=== PATIENT | female | born 1950 | race Caucasian/White ===

== ENCOUNTER 2025-05-20 11:07 | Inpatient (IN) | payer OTHER, BC ==
[2025-05-20] MEDS ORDERED: NA CHLORIDE 0.9% 1,000 ML ONE (11:35)
[2025-05-20] MEDS ORDERED: ONDANSETRON 4 MG/2 ML VIAL ONE (11:35)
[2025-05-20 11:53] LABS: Absolute Lymphocytes (CBC) 2.0 K/uL (0.7-4.9); Hematocrit 55.2 % (36.0-45.0); Hemoglobin 17.7 g/dL (12.0-15.0); MCH 27.2 pg (27.0-35.0); MCHC 32.1 g/dL (32.0-36.0); MCV 84.7 fL (80-100); MPV 9.8 fL (7.6-11.3); Nucleated RBC Absolute Count 0.0 (0-0); Nucleated Red Blood Cells % 0.4 % (0-0); RBC Red Blood Cell Count 6.51 M/uL (3.86-4.86); White Blood Count 9.10 thou/uL (4.3-10.9)
[2025-05-20 12:13] LABS: ALT/SGPT 17.0 U/L (13-56); AST/SGOT 18.0 U/L (15-37); Albumin 3.5 g/dL (3.4-5.0); Albumin/Globulin Ratio 0.7 (1.1-1.8); Alkaline Phosphatase 135.0 U/L (45-117); Anion Gap 10.5 mEq/L (5.0-15.0); BUN Blood Urea Nitrogen 20.0 mg/dL (7-18); Globulin 5.1 g/dL (2.3-3.5); Glucose Level 188.0 mg/dL (74-106); Lipase 154.0 U/L (13-75); Potassium 3.5 mEq/L (3.5-5.1)
--- NOTE | 2025-05-20 12:43 | RAD REPORT ---
EXAMINATION: Abdomen Pelvis W Contrast CLINICAL INDICATION: Female, 75 years old.ABD PAIN TECHNIQUE: CT abdomen and pelvis was performed, after the administration of IV contrast, as per [facility] protocol. Axial, sagittal and coronal reconstructions were obtained. One or more of the following dose reduction techniques were used: Automated exposure control, adjustment of the mA and/o r kV according to patient size, and/or iterative reconstruction. Unless otherwise specified, incidental findings do not require dedicated imaging follow-up. [id number]. COMPARISON: No prior exams FINDINGS: LOWER CHEST: No acute process identified.No significant pericardial effusion. Mild circumferential th ickening of the distal esophagus which could reflect esophagitis. UPPER GI: No significant abnormality. LIVER: No significant focal abnormality. GALLBLADDER/BILE DUCTS: Cholecystectomy.? PANCREAS: Relative atrophy of the body and tail. No ductal dilatation or mass. SPLEEN: Unremarkable. ADRENALS: No adrenal masses. KIDNEYS AND URETERS: No hydronephrosis.Low density and/or too small to characterize renal lesions whi ch are statistically benign.No renal calculi.No ureteral calculi. ABDOMINAL AORTA AND OTHER VESSELS: Severe atherosclerotic changes. No aortic aneurysm. PERITONEUM: No abnormal free fluid. No free air. LYMPH NODES: No pathologic lymphadenopathy. ABDOMINAL WALL: Unremarkable SMALL BOWEL/COLON: Wall thickening at the ascending and transverse colon. Mild diverticulosis without diverticulitis. URINARY BLADDER: Underdistended but grossly unremarkable. REPRODUCTIVE ORGANS: No pathologic process. MUSCULOSKELETAL: No acute or suspicious osseous abnormality. ADDITIONAL FINDINGS: None. IMPRESSION: Wall thickening at the ascending and transverse colon could reflect a bronchitis. No bowel obstructio n. No other acute findings identified. Incidental findings as noted above.
[2025-05-20] MEDS ORDERED: METRONIDAZOLE 500mg IVPB 500 MG/100 ML BAG IV ONE (13:38)
[2025-05-20] MEDS ORDERED: CIPROFLOXACIN 400mg IV 400 MG/200 ML BAG IV ONE (13:38)
--- NOTE | 2025-05-20 13:38 | ER ---
Nurse's Notes [facility] Name: Rosalia Mccartney Age: 75 yrs Sex: Female : 1950 Arrival Date: 05/20/2025 Time: 11:07 Bed 15 Private MD: Diagnosis: Dehydration;Colitis Presentation: 05/20 11:22 Chief complaint: Patient states: N/V since Tuesday. Coronavirus screen: Client denies ss travel out of the [place] in the last 14 days. Ebola Screen: Patient denies exposure to infectious person. Patient denies travel to an Ebola-affected area in the 21 days before illness onset. Initial Sepsis Screen: Does the patient meet any 2 criteria? No. Patient's initial sepsis screen is negative. Does the patient have a suspected source of infection? No. Patient's initial sepsis screen is negative. Risk Assessment: Do you want to hurt yourself or someone else? Patient reports no desire to harm self or others. Onset of symptoms was May 17, 2025. 11:22 Method Of Arrival: Ambulatory ss 11:22 Acuity: LUIS MIGUEL 3 ss Historical: - Allergies: 11:24 No Known Allergies; ss - Home Meds: 14:18 omeprazole 20 mg Oral tablet, delayed release (enteric coated) 1 tab daily [Active]; af3 atorvastatin 40 mg oral tablet 1 tab daily [Active]; carvedilol 3.125 mg oral tablet 1 tab 2 times per day [Active]; levothyroxine 200 mcg tablet 1 tab daily [Active]; lisinopril 40 mg Oral tablet 1 tab daily [Active]; glipizide 5 mg Oral tablet 1 tab 2 times per day [Active]; Jardiance 25 mg oral tablet 1 tab daily [Active]; amlodipine 10 mg tablet 1 tab daily [Active]; - PMHx: 11:24 COPD; ss - Immunization history:: Adult Immunizations unknown. - Infectious Disease History:: Denies. - Social history:: Smoking status: Patient reports the use of cigarette tobacco products, smokes one pack cigarettes per day. Screenin:30 [facility] ED Fall Risk Assessment (Adult) History of falling in the last 3 months, af3 including since admission No falls in past 3 months (0 pts) Confusion or Disorientation No (0 pts) Intoxicated or Sedated No (0 pts) Impaired Gait No (0 pts) Mobility Assist Device Used No (0 pt) Altered Elimination No (0 pt) Score/Fall Risk Level 0 - 2 = Low Risk Oriented to surroundings, Maintained a safe environment, Educated pt \T\ family on fall prevention, incl call for assistance when getting out of bed. Abuse screen: Denies threats or abuse. Denies injuries from another. Nutritional screening: No deficits noted. Tuberculosis screening: No symptoms or risk factors identified. Assessment: 11:30 General: Appears in no apparent distress. comfortable, well groomed, well developed, af3 Behavior is calm, cooperative, appropriate for age. Pain: Denies pain. Neuro: Level of Consciousness is awake, alert, obeys commands, Oriented to person, place, time, situation, Appropriate for age. Cardiovascular: Patient's skin is warm and dry. Respiratory: Airway is patent Respiratory effort is even, unlabored, Respiratory pattern is regular, symmetrical. GI: Reports nausea, vomiting. 12:34 Reassessment: Patient appears in no apparent distress at this time. No changes from cm10 previously documented assessment. Patient and/or family updated on plan of care and expected duration. Pain level reassessed. Patient is alert, oriented x 3, equal unlabored respirations, skin warm/dry/pink. 13:46 Reassessment: Patient appears in no apparent distress at this time. No changes from af3 previously documented assessment. Patient and/or family updated on plan of care and expected duration. Pain level reassessed. Patient is alert, oriented x 3, equal unlabored respirations, skin warm/dry/pink. 14:53 Reassessment: Patient appears in no apparent distress at this time. No changes from af3 previously documented assessment. Patient and/or family updated on plan of care and expected duration. Pain level reassessed. Patient is alert, oriented x 3, equal unlabored respirations, skin warm/dry/pink. Patient states symptoms have improved. 15:32 Reassessment: Patient appears in no apparent distress at this time. No changes from af3 previously documented assessment. Patient and/or family updated on plan of care and expected duration. Pain level reassessed. Patient is alert, oriented x 3, equal unlabored respirations, skin warm/dry/pink. 16:30 Reassessment: Patient appears in no apparent distress at this time. No changes from af3 previously documented assessment. Patient and/or family updated on plan of care and expected duration. Pain level reassessed. Patient is alert, oriented x 3, equal unlabored respirations, skin warm/dry/pink. Vital Signs: 11:22 BP 164 / 95; Pulse 90; Resp 18; Temp 98(O); Pulse Ox 89% ; Weight 54.43 kg; Height 5 ss ft. 0 in. ; Pain 0/10; 11:30 BP 183 / 82; Pulse 76; Resp 18; Pulse Ox 100% on 2 lpm NC; Weight 54.43 kg; Height 5 af3 ft. 0 in. ; 12:34 BP 200 / 88; Pulse 79; Resp 18; Pulse Ox 100% on 2 lpm NC; cm10 12:49 BP 184 / 79; Pulse 86; Resp 18; Pulse Ox 94% on 2 lpm NC; af3 13:46 BP 167 / 100; Pulse 85; Resp 18; Pulse Ox 96% on 2 lpm NC; af3 14:05 BP 177 / 87; Pulse 81; Resp 18; Pulse Ox 97% on 2 lpm NC; af3 14:52 BP 204 / 86; Pulse 72; Resp 18; Pulse Ox 98% on 2 lpm NC; af3 15:31 BP 167 / 95; Pulse 85; Resp 18; Pulse Ox 94% on 2 lpm NC; af3 16:11 BP 188 / 88; Pulse 86; Resp 18; Pulse Ox 98% on R/A; af3 16:29 BP 184 / 83; Pulse 84; Resp 18; Pulse Ox 94% on 2 lpm NC; af3 11:30 Body Mass Index 23.44 (54.43 kg, 152.4 cm) af3 11:22 Pain Scale: Adult ss ED Course: 11:12 Patient arrived in ED. al6 11:13 [facility] Britt [facility]-C [facility]. kb 11:13 Royal Lombardo MD is Attending Physician. kb 11:24 Triage completed. ss 11:24 Arm band placed on right wrist. ss 11:30 Patient has correct armband on for positive identification. Bed in low position. Call af3 light in reach. Provided Education on: meds, call light use . 11:30 No provider procedures requiring assistance completed. af3 11:33 Magali Powers RN is Primary Nurse. af3 11:51 Inserted saline lock: 20 gauge in right antecubital area, using aseptic technique. pm7 Blood collected. Flushed with 10 mL NS. 12:29 CT Abd/Pelvis - IV Contrast Only In Process Unspecified. EDMS 13:37 Tavo Escobar is Hospitalizing Provider. kb 17:10 Patient admitted, IV remains in place. af3 Administered Medications: 11:52 Drug: Ondansetron IVP 4 mg IVP once; over 2 minutes Route: IVP; Site: right antecubital;af3 12:30 Follow up: Response: No adverse reaction; Nausea is decreased af3 11:52 Drug: NS 0.9% IV 1000 ml IV at 1 bolus Per protocol; to be given as a bolus over 60 af3 minutes Route: IV; Rate: 1 bolus; Site: right antecubital; 12:30 Follow up: Response: No adverse reaction; IV Status: Completed infusion; IV Intake: af3 1000ml 13:35 CANCELLED (Other Intervention Used): [id number] mg PO once kb 13:35 CANCELLED (Other Intervention Used): [id number] mg PO once kb 13:46 Drug: Ciprofloxacin IVPB 400 mg 200 ml IVPB once over 60 mins Volume: 200 ml; Route: af3 IVPB; Infused Over: 60 mins; Site: right antecubital; 14:52 Follow up: Response: No adverse reaction; IV Status: Completed infusion; IV Intake: af3 200ml 14:52 Drug: metroNIDAZOLE IVPB 500 mg 100 ml IVPB at 200 ml/hr once over 30 mins Volume: 100 af3 ml; Route: IVPB; Rate: 200 ml/hr; Infused Over: 30 mins; Site: right antecubital; 16:11 Follow up: BP 188 / 88; Pulse 86 bpm; Resp 18 bpm; Pulse Ox 98% RA af3 16:12 Follow up: Response: No adverse reaction; IV Status: Completed infusion; IV Intake: af3 100ml Medication: 11:30 VIS not applicable for this client. af3 Intake: 12:30 IV: 1000ml; Total: 1000ml. af3 14:52 IV: 200ml; Total: 1200ml. af3 16:12 IV: 100ml; Total: 1300ml. af3 Outcome: 13:37 Decision to Hospitalize by Provider. kb 17:09 Admitted to Med/surg accompanied by nurse, via wheelchair, with oxygen, with chart, af3 Other RM 230 17:09 Condition: stable 17:09 Discharge instructions given to patient, Instructed on the need for admit, Demonstrated understanding of instructions, 17:10 Patient left the ED. af3 Signatures: Dispatcher [employer] EDMS Iris Britt, SOUND RECORDIST-C SOUND RECORDIST-CkDemi Craig RN RN ss Yesica Wilson RN RN cm10 Magali Powers RN RN af3 Rola Hartman6 Trini Holbrook pm7 Corrections: (The following items were deleted from the chart) 14:10 14:05 BP 171 / 151; Pulse 81bpm; Resp 18bpm; Pulse Ox 97% 2 lpm Nasal Cannula; af3 af3
--- NOTE | 2025-05-20 13:38 | EDPHYS ---
Physician Documentation [facility] Name: Rosalia Mccartney Age: 75 yrs Sex: Female : 1950 Arrival Date: 05/20/2025 Time: 11:07 Bed 15 Private MD: ED Physician Royal Lombardo HPI: 05/20 11:27 This 75 yrs old Female presents to ER via Ambulatory with complaints of Vomiting. kb 11:27 Pt is a 75 year old female who presents for n/v/d that started 4 days ago. Denies kb fever, abd pain. . Historical: - Allergies: 11:24 No Known Allergies; ss - Home Meds: 14:18 omeprazole 20 mg Oral tablet, delayed release (enteric coated) 1 tab daily [Active]; af3 atorvastatin 40 mg oral tablet 1 tab daily [Active]; carvedilol 3.125 mg oral tablet 1 tab 2 times per day [Active]; levothyroxine 200 mcg tablet 1 tab daily [Active]; lisinopril 40 mg Oral tablet 1 tab daily [Active]; glipizide 5 mg Oral tablet 1 tab 2 times per day [Active]; Jardiance 25 mg oral tablet 1 tab daily [Active]; amlodipine 10 mg tablet 1 tab daily [Active]; - PMHx: 11:24 COPD; ss - Immunization history:: Adult Immunizations unknown. - Infectious Disease History:: Denies. - Social history:: Smoking status: Patient reports the use of cigarette tobacco products, smokes one pack cigarettes per day. ROS: 11:27 Constitutional: As per HPI kb Exam: 11:27 Constitutional: This is a well developed, well nourished patient who is awake, alert, kb and in no acute distress. Head/Face: Normocephalic, atraumatic. ENT: Moist Mucous membranes Cardiovascular: Regular rate Respiratory: Respirations even and unlabored. No increased work of breathing. Talking in full sentences Abdomen/GI: Soft, non-tender. No distention Skin: Warm, dry with normal turgor. Normal color. MS/ Extremity: Pulses equal, no cyanosis. Neurovascular intact. Full, normal range of motion. Neuro: Awake and alert, GCS 15, oriented to person, place, time, and situation. Vital Signs: 11:22 BP 164 / 95; Pulse 90; Resp 18; Temp 98(O); Pulse Ox 89% ; Weight 54.43 kg; Height 5 ss ft. 0 in. ; Pain 0/10; 11:30 BP 183 / 82; Pulse 76; Resp 18; Pulse Ox 100% on 2 lpm NC; Weight 54.43 kg; Height 5 af3 ft. 0 in. ; 12:34 BP 200 / 88; Pulse 79; Resp 18; Pulse Ox 100% on 2 lpm NC; cm10 12:49 BP 184 / 79; Pulse 86; Resp 18; Pulse Ox 94% on 2 lpm NC; af3 13:46 BP 167 / 100; Pulse 85; Resp 18; Pulse Ox 96% on 2 lpm NC; af3 14:05 BP 177 / 87; Pulse 81; Resp 18; Pulse Ox 97% on 2 lpm NC; af3 14:52 BP 204 / 86; Pulse 72; Resp 18; Pulse Ox 98% on 2 lpm NC; af3 15:31 BP 167 / 95; Pulse 85; Resp 18; Pulse Ox 94% on 2 lpm NC; af3 16:11 BP 188 / 88; Pulse 86; Resp 18; Pulse Ox 98% on R/A; af3 16:29 BP 184 / 83; Pulse 84; Resp 18; Pulse Ox 94% on 2 lpm NC; af3 11:30 Body Mass Index 23.44 (54.43 kg, 152.4 cm) af3 11:22 Pain Scale: Adult ss MDM: 11:15 Medical Screening Exam initiated kb 13:28 Data reviewed: vital signs, nurses notes. kb 13:28 Differential diagnosis: diverticulitis, viral gastroenteritis, colitis, enteritis. kb 13:34 Consideration of Admission/Observation Patient was admitted/placed on observation. kb Escalation of care including admission/observation considered. Management of patient was discussed with the following: Hospitalist: Hospitalist team, pt accepted for admission under Dr Escobar. Counseling: I had a detailed discussion with the patient and/or guardian regarding the historical points, exam findings, and any diagnostic results supporting the discharge/admit diagnosis, lab results, radiology results, the need for further work-up and treatment in the hospital. 05/20 11:23 Order name: CBC with Diff; Complete Time: 12:06 kb 05/20 11:23 Order name: CMP; Complete Time: 12:14 kb 05/20 11:23 Order name: Lipase; Complete Time: 12:14 kb 05/20 15:56 Order name: Basic Metabolic Panel EDMS 05/20 15:56 Order name: Basic Metabolic Panel EDMS 05/20 15:56 Order name: CBC with Automated Diff EDMS 05/20 15:56 Order name: CBC with Automated Diff EDMS 05/20 15:56 Order name: Hemoglobin A1c EDMS 05/20 15:56 Order name: Hemoglobin A1c EDMS 05/20 15:56 Order name: Magnesium EDMS 05/20 15:56 Order name: Magnesium EDMS 05/20 15:56 Order name: Phosphorus EDMS 05/20 15:56 Order name: Phosphorus EDMS 05/20 11:23 Order name: CT Abd/Pelvis - IV Contrast Only; Complete Time: 13:12 kb 05/20 11:23 Order name: IV Saline Lock; Complete Time: 11:50 kb 05/20 11:23 Order name: Labs collected and sent; Complete Time: 11:51 kb Administered Medications: 11:52 Drug: Ondansetron IVP 4 mg IVP once; over 2 minutes Route: IVP; Site: right antecubital;af3 12:30 Follow up: Response: No adverse reaction; Nausea is decreased af3 11:52 Drug: NS 0.9% IV 1000 ml IV at 1 bolus Per protocol; to be given as a bolus over 60 af3 minutes Route: IV; Rate: 1 bolus; Site: right antecubital; 12:30 Follow up: Response: No adverse reaction; IV Status: Completed infusion; IV Intake: af3 1000ml 13:35 CANCELLED (Other Intervention Used): [id number] mg PO once kb 13:35 CANCELLED (Other Intervention Used): [id number] mg PO once kb 13:46 Drug: Ciprofloxacin IVPB 400 mg 200 ml IVPB once over 60 mins Volume: 200 ml; Route: af3 IVPB; Infused Over: 60 mins; Site: right antecubital; 14:52 Follow up: Response: No adverse reaction; IV Status: Completed infusion; IV Intake: af3 200ml 14:52 Drug: metroNIDAZOLE IVPB 500 mg 100 ml IVPB at 200 ml/hr once over 30 mins Volume: 100 af3 ml; Route: IVPB; Rate: 200 ml/hr; Infused Over: 30 mins; Site: right antecubital; 16:11 Follow up: BP 188 / 88; Pulse 86 bpm; Resp 18 bpm; Pulse Ox 98% RA af3 16:12 Follow up: Response: No adverse reaction; IV Status: Completed infusion; IV Intake: af3 100ml Disposition: 17:13 Co-signature as Attending Physician, Royal Lombardo MD I reviewed the patient's care rn provided by the Advanced Practice Provider and agree with the diagnosis and treatment plan. Disposition Summary: 05/20/25 13:37 Hospitalization Ordered Notes: Hospitalization Status: Observation kb Provider: Tavo Escobar Location: Telemetry/MedSurg (observation) kb Condition: Stable kb Problem: new kb Symptoms: are unchanged kb Bed/Room Type: Standard Room Assignment: 230(05/20/25 16:02) bd Diagnosis - Dehydration kb - Colitis kb Forms: - Medication Reconciliation Form kb - SBAR form kb - Leadership Thank You Letter kb Signatures: Dispatcher [employer] EDIris Patel FNP-C FNP-Ckb Dirrim, Barbara bd Nieto, Roman, MD MD rn Blanchard, Shelby, RN RN ss Fry, Ashley, RN RN af3 Corrections: (The following items were deleted from the chart) 13:35 13:28 Counseling: I had a detailed discussion with the patient and/or guardian kb regarding the historical points, exam findings, and any diagnostic results supporting the discharge/admit diagnosis, lab results, radiology results, the need for outpatient follow up, a family practitioner, to return to the emergency department if symptoms worsen or persist or if there are any questions or concerns that arise at home, 13:35 13:28 Consideration of Admission/Observation Escalation of care including kb admission/observation considered. admission considered but pt tolerating po intake, nontoxic in appearance. Discussed return precautions. . kb 13:35 13:29 Ciprofloxacin PO 500 mg PO once ordered. kb 13:35 13:29 metroNIDAZOLE PO 500 mg PO once ordered. [facility] 16:02 13:37 kb bd
[2025-05-20] MEDS ORDERED: ACETAMINOPHEN 325 MG TABLET PO PRN (15:49)
[2025-05-20] MEDS ORDERED: D10W 125 ML IV PRN (15:49)
[2025-05-20] MEDS ORDERED: GLUCAGON 1 MG/VIAL IM PRN (15:49)
[2025-05-20] MEDS ORDERED: ONDANSETRON 4 MG/2 ML VIAL IV PRN (15:49)
--- NOTE | 2025-05-20 16:01 | P.HP ---
Certification for Inpatient Patient admitted to: Observation With expected LOS: <2 Midnights Practitioner: I am a practitioner with admitting privileges, knowledge of patient current condition, hospital course, and medical plan of care. Services: Services provided to patient in accordance with Admission requirements found in Title 42 Section 412.3 of the Code of Federal Regulations Patient History Date of Service: 05/20/25 Reason for admission: Nausea vomiting and diarrhea History of Present Illness: 75-year-old male with a history of diabetes, hypertension, hyperlipidemia, COPD presented to the emergency department with a complaint of nausea vomiting abdominal pain and diarrhea of onset 3 days ago. Patient states that his symptoms occurred after eating a sandwich which she bought from a restaurant in [place] 3 days ago. Patient states she started experiencing nausea vomiting and abdominal pain a few hours later. States she then developed diarrhea. Symptoms persisted until presentation to the ED. Patient states no diarrhea after coming to the emergency department. No more nausea. Patient was evaluated in the ED and noted to have dehydration with acute kidney injury. Patient has no leukocytosis and does not meet criteria for sepsis. CT abdomen and pelvis demonstrated acute colitis She is hospitalized for further management. Allergies No Known Allergies Allergy (Unverified 05/20/25 17:06) Home Medications: Amlodipine [Norvasc] 10 mg PO DAILY 05/20/25 Atorvastatin Calcium 40 mg PO DAILY 05/20/25 Citalopram [Celexa] 40 mg PO DAILY 05/20/25 Empagliflozin [Jardiance] 25 mg PO DAILY 05/20/25 Levothyroxine [Synthroid] 200 mcg PO DAILY 05/20/25 Lisinopril [Zestril] 40 mg PO DAILY 05/20/25 Omeprazole 20 mg PO DAILY 05/20/25 carvediloL [Carvedilol] 3.125 mg PO BID 05/20/25 glipiZIDE [Glipizide] 5 mg PO BID 05/20/25 - Past Medical/Surgical History -: Diabetes mellitus type 2 -: Hypertension -: Hyperlipidemia -: COPD -: Hypothyroidism -: GERD - Family History Mother -: Cancer - Social History Smoking Status: Current every day smoker (1 pack/day) Alcohol use: Yes Place of Residence: Home Review of Systems Other: Patient denied any shortness of breath, she denied any fever or chills. She denied any orthopnea or cough. Except as documented, all other systems reviewed and negative. Physical Examination - Physical Exam General: Alert, In no apparent distress, Oriented x3 HEENT: PERRLA, Mucous membr. moist/pink, EOMI, Sclerae nonicteric Neck: Supple, JVD not distended Respiratory: Clear to auscultation bilaterally, Normal air movement Cardiovascular: No edema, Regular rate/rhythm, Normal S1 S2 Gastrointestinal: Normal bowel sounds, Soft and benign, Non-distended, No tenderness Musculoskeletal: No swelling, No tenderness Integumentary: No rashes, No cyanosis Neurological: Normal strength at 5/5 x4 extr, Cranial nerves 3-12 intact Lymphatics: No axilla or inguinal lymphadenopathy - Studies Laboratory Data (last 24 hrs) 05/20/25 05/20/25 11:47 11:47 WBC 9.10 Hgb 17.7 H Hct 55.2 H Plt Count 237 Sodium 134 L Potassium 3.5 BUN 20 H Creatinine 1.41 H Glucose 188 H Total Bilirubin 0.6 AST 18 ALT 17 Alkaline Phosphatase 135 H Lipase 154 H Assessment and Plan - Problems (Diagnosis) (1) Acute kidney injury Current Visit: Yes Status: Acute (2) Enterocolitis Current Visit: Yes Status: Acute (3) Diabetes mellitus type 2 in nonobese Current Visit: Yes Status: Acute (4) Essential hypertension Current Visit: Yes Status: Acute (5) Hypothyroidism Current Visit: Yes Status: Acute (6) Hyponatremia Current Visit: Yes Status: Acute - Plan Place patient under observation. Suspect patient's symptoms related to food poisoining/foodborne enterocolitis Patient with mild hyponatremia Hydrate with IV NS Start IV Cipro and Flagyl for infectious colitis. Analgesics as needed Insulin sliding scale for glucose management Check hemoglobin A1c Continue home medications for hypothyroidism Continue home medications for hypertension Hydralazine IV as needed for BP spikes. Monitor and optimize electrolytes. - Advance Directives Does patient have a Living Will: No Does patient have a Durable POA for Healthcare: No
[2025-05-20 17:54] VITALS: BMI 23.4
[2025-05-20] MEDS: NA CHLORIDE 0.9% 1,000 ML IV SCH (18:31)
[2025-05-20] MEDS: METRONIDAZOLE 500mg IVPB 500 MG/100 ML BAG IV SCH (18:32)
[2025-05-20] MEDS: INSULIN REGULAR (HUMAN) 100 UNIT/ML SQ SCH (18:32)
[2025-05-20] MEDS: HEPARIN 5000 UNIT/ML 1 ML VIAL SQ SCH (18:32)
[2025-05-20] MEDS: ALBUTEROL 2.5 MG/3 ML NEB SOL NEB SCH (19:32)
[2025-05-20] MEDS: IPRATROPIUM BROM 0.5MG/2.5ML NEB SCH (19:32)
[2025-05-20] MEDS: CIPROFLOXACIN 400mg IV 400 MG/200 ML BAG IV SCH (21:04)
[2025-05-21 05:19] LABS: Absolute Lymphocytes (CBC) 1.8 K/uL (0.7-4.9); Hematocrit 46.0 % (36.0-45.0); Hemoglobin 14.9 g/dL (12.0-15.0); MCH 27.5 pg (27.0-35.0); MCHC 32.5 g/dL (32.0-36.0); MCV 84.7 fL (80-100); MPV 9.2 fL (7.6-11.3); Nucleated RBC Absolute Count 0.0 (0-0); Nucleated Red Blood Cells % 0.2 % (0-0); RBC Red Blood Cell Count 5.42 M/uL (3.86-4.86); White Blood Count 7.20 thou/uL (4.3-10.9)
[2025-05-21 05:34] LABS: Anion Gap 9.1 mEq/L (5.0-15.0); BUN Blood Urea Nitrogen 13.0 mg/dL (7-18); Glucose Level 150.0 mg/dL (74-106); Magnesium 2.0 mg/dL (1.6-2.4); Potassium 3.1 mEq/L (3.5-5.1)
[2025-05-21] MEDS: POTASSIUM CL SA 10 MEQ TAB PO ONE (09:47)
[2025-05-21] MEDS: CITALOPRAM 10 MG TABLET PO SCH (09:47)
[2025-05-21] MEDS: AMLODIPINE 10 MG TAB PO SCH (09:48)
[2025-05-21] MEDS: ATORVASTATIN 40 MG TAB PO SCH (09:48)
[2025-05-21] MEDS: LEVOTHYROXINE SOD 0.1 MG TAB PO SCH (10:49)
[2025-05-21] MEDS: PANTOPRAZOLE 40MG TABLET PO SCH (10:49)
--- NOTE | 2025-05-21 11:33 | P.PN ---
Date of Service: 05/21/25 Subjective: feeling better loose stool, but not as much tolerated liquid diet Physical Exam: Gen: Alert, Oriented, NAD CV: Regular rate and rhythm, no edema Pulm: Nonlabored respirations on room air Abdomen: Soft, nontender, nondistended Neuro: Normal strength, normal affect Problem List: Possible colitis vs food poisoning AUBREE secondary to dehydration, resolved Hypertension Hyperlipidemia Chronic COPD Possible colitis vs food poisoning on admission, presents with worsening abdominal pain associated with N/V/D Patient reports symptoms started a few hours after eating a sandwich she bought a few days ago. No further diarrhea since arrival to ER. Nausea improved. CT abd/pelvis noted wall thickening at ascending and transverse colon possibly secondary to colitis. No SBO. Mild distal esophageal wall thickening. Continue IV cipro/flagyl to cover possible colitis Start oral protonix pain control, IVF advance diet AUBREE secondary to dehydration, resolved Monitor renal function, electrolytes Continue IV hydration AUBREE resolved. Hypertension Hyperlipidemia Chronic COPD confirm home meds, restart as appropriate Code: full Dispo: home, ~24-48hrs
[2025-05-21] MEDS: HYDRALAZINE HCL 20 MG/ML VIAL IV PRN (22:18)
[2025-05-21] MEDS: ALPRAZOLAM 0.5 MG TABLET PO ONE (23:59)
[2025-05-22 04:36] LABS: Hematocrit 48.4 % (36.0-45.0); Hemoglobin 15.9 g/dL (12.0-15.0); MCH 27.8 pg (27.0-35.0); MCHC 32.7 g/dL (32.0-36.0); MCV 84.9 fL (80-100); MPV 10.1 fL (7.6-11.3); RBC Red Blood Cell Count 5.70 M/uL (3.86-4.86); White Blood Count 8.90 thou/uL (4.3-10.9)
[2025-05-22 04:42] LABS: Anion Gap 7.5 mEq/L (5.0-15.0); BUN Blood Urea Nitrogen 11.0 mg/dL (7-18); Glucose Level 192.0 mg/dL (74-106); Magnesium 1.8 mg/dL (1.6-2.4); Potassium 3.5 mEq/L (3.5-5.1)
[2025-05-22] MEDS: MAGNESIUM SULFATE 1 gm IVPB 1 GM/100 ML BAG IV ONE (05:38)
[2025-05-22 08:39] VITALS: O2SAT 87
[2025-05-22] MEDS: POTASSIUM CL SA 10 MEQ TAB PO ONE (08:52)
[2025-05-22 12:02] VITALS: BP 183/84; TEMP 98.2
[2025-05-22] MEDS: ALBUTEROL 2.5 MG/3 ML NEB SOL NEB SCH (13:05)
[2025-05-22] MEDS: ALPRAZOLAM 0.5 MG TABLET PO PRN (13:29)
[2025-05-22] MEDS ORDERED: CIPROFLOXACIN HCL 500 MG TAB PO SCH (21:00)
--- NOTE | 2025-05-23 06:59 | P.DS ---
Admission Date: 05/21/25 Discharge Date: 05/22/25 Disposition: ROUTINE DISCHARGE Discharge Condition: GOOD Reason for Admission: Nausea vomiting and diarrhea Brief History of Present Illness: 75yo F, PMH: diabetes, hypertension, hyperlipidemia, COPD Patient presented to the emergency department with a complaint of nausea vomiting abdominal pain and diarrhea of onset 3 days ago. Patient states that his symptoms occurred after eating a sandwich which she bought from a restaurant in [place] 3 days ago. Patient states she started experiencing nausea vomiting and abdominal pain a few hours later. States she then developed diar elidia. Symptoms persisted until presentation to the ED. Patient states no diarrhea after coming to the emergency department. No more nausea. Patient was evaluated in the ED and noted to have dehydration with acute kidney injury. Patient has no leukocytosis and does not meet criteria for sepsis. CT abdomen and pelvis demonstrated acute colitis Hospital Course: Problem List: Possible colitis vs food poisoning AUBREE secondary to dehydration, resolved Hypertension Hyperlipidemia Chronic COPD Physician discharge instructions: Patient presented with abdominal pain associated with nausea, vomiting, and diarrhea. Unclear exact etiology but most consistent with acute colitis vs food poisoning. Patient reports that she developed abdominal pain with nausea and vomiting after eating a sandwich she purchased a few days ago and then subsequently started having diarrhea. CT abdomen/pelvis on admission noted wall thickening at ascending and transverse colon possibly secondary to colitis. No bowel obstruction seen. CT also noted mild distal esophageal wall thickening. Patient was given antibiotics and IV fluids and had improvement of her symptoms. No further diarrhea or vomiting since arrival to ER. Patient was feeling better, abdominal pain improved, nausea/vomiting/diarrhea resolved, and was deemed stable for discharge. Patient has been tolerating soft diet without issues on day of discharge. If symptoms return, consider outpatient GI follow up to discuss possible EGD/colonoscopy to further evaluate if you haven't had one recently. Creatinine was 1.41 on admission which quickly resolved with IV hydration. Mild AUBREE secondary to dehydration. Creatinine on discharge: 1.19 Patient was noted to intermittently desat to low 90s on room air throughout hospitalization. She reported dealing with this at home occasionally and it takes a few minutes for the number to go back after catching her breath and taking deep breaths. Patient is known to have COPD on inhalers/nebulizers at home. She was restarted on her home meds and had improvement of her symptoms. Recommend tobacco cessation. Follow up with Pulmonology in the near future for further management and further refills. Medications: Cipro/Flagyl She reported having prescriptions for her home inhalers/nebulizers Follow up: PCP 3-5 days Pulmonology in 2-4 weeks GI in the near future Please call to schedule / confirm appointments Physical Exam: Gen: Alert, Oriented, NAD CV: Regular rate and rhythm, no edema Pulm: Nonlabored respirations on room air Abdomen: Soft, nontender, nondistended Neuro: Normal strength, normal affect Vital Signs/Physical Exam: Temp Pulse Resp BP Pulse Ox 98.2 F 64 18 183/84 H 98 05/22/25 12:00 05/22/25 12:00 05/22/25 12:00 05/22/25 12:00 05/22/25 12:00 Laboratory Data at Discharge: WBC 8.90 thou/uL (4.3-10.9) 05/22/25 03:54 Hgb 15.9 g/dL (12.0-15.0) H 05/22/25 03:54 Hct 48.4 % (36.0-45.0) H 05/22/25 03:54 Plt Count 205 thou/uL (152-406) 05/22/25 03:54 Sodium 143 mEq/L (136-145) D 05/22/25 03:54 Potassium 3.5 mEq/L (3.5-5.1) 05/22/25 03:54 BUN 11 mg/dL (7-18) 05/22/25 03:54 Creatinine 1.19 mg/dL (0.55-1.02) H 05/22/25 03:54 Glucose 192 mg/dL (74-106) H 05/22/25 03:54 Phosphorus 2.5 mg/dL (2.5-4.9) 05/21/25 05:07 Magnesium 1.8 mg/dL (1.6-2.4) 05/22/25 03:54 Total Bilirubin 0.6 mg/dL (0.2-1.0) 05/20/25 11:47 AST 18 U/L (15-37) 05/20/25 11:47 ALT 17 U/L (13-56) 05/20/25 11:47 Alkaline Phosphatase 135 U/L (45-117) H 05/20/25 11:47 Lipase 154 U/L (13-75) H 05/20/25 11:47 Home Medications: Amlodipine [Norvasc*] 10 mg PO DAILY 05/20/25 Atorvastatin Calcium 40 mg PO DAILY 05/20/25 Citalopram [Celexa*] 40 mg PO DAILY 05/20/25 Empagliflozin [Jardiance] 25 mg PO DAILY 05/20/25 Levothyroxine [Synthroid*] 200 mcg PO DAILY 05/20/25 Lisinopril [Zestril] 40 mg PO DAILY 05/20/25 Omeprazole 20 mg PO DAILY 05/20/25 carvediloL [Carvedilol] 3.125 mg PO BID 05/20/25 glipiZIDE [Glipizide] 5 mg PO BID 05/20/25 ALPRAZolam [Xanax*] 0.5 mg PO BID PRN 05/21/25 Ciprofloxacin HCl [Cipro] 500 mg PO BID 7 Days #14 tab 05/22/25 metroNIDAZOLE [Flagyl*] 500 mg PO TID 7 Days #21 tab 05/22/25 New Medications: Ciprofloxacin HCl [Cipro] 500 mg PO BID 7 Days #14 tab metroNIDAZOLE [Flagyl*] 500 mg PO TID 7 Days #21 tab Physician Discharge Instructions: Physician discharge instructions: Patient presented with abdominal pain associated with nausea, vomiting, and diarrhea. Unclear exact etiology but most consistent with acute colitis vs food poisoning. Patient reports that she developed abdominal pain with nausea and vomiting after eating a sandwich she purchased a few days ago and then subsequently started having diarrhea. CT abdomen/pelvis on admission noted wall thickening at ascending and transverse colon possibly secondary to colitis. No bowel obstruction seen. CT also noted mild distal esophageal wall thickening. Patient was given antibiotics and IV fluids and had improvement of her symptoms. No further diarrhea or vomiting since arrival to ER. Patient was feeling better, abdominal pain improved, nausea/vomiting/diarrhea resolved, and was deemed stable for discharge. Patient has been tolerating soft diet without issues on day of discharge. If symptoms return, consider outpatient GI follow up to discuss possible EGD/colonoscopy to further evaluate if you haven't had one recently. Creatinine was 1.41 on admission which quickly resolved with IV hydration. Mild AUBREE secondary to dehydration. Creatinine on discharge: 1.19 Patient was noted to intermittently desat to low 90s on room air throughout hospitalization. She reported dealing with this at home occasionally and it takes a few minutes for the number to go back after catching her breath and taking deep breaths. Patient is known to have COPD on inhalers/nebulizers at home. She was restarted on her home meds and had improvement of her symptoms. Recommend tobacco cessation. Follow up with Pulmonology in the near future for further management and further refills. Medications: Cipro/Flagyl She reported having prescriptions for her home inhalers/nebulizers Follow up: PCP 3-5 days Pulmonology in 2-4 weeks GI in the near future Please call to schedule / confirm appointments Followup: Zachariah Oliveros MD [ACTIVE - CAN ADMIT] - NONE,NONE [Primary Care Provider] - Time spent managing pt's care (in minutes): 45
== END 2025-05-22 14:48 | disposition home or self-care (01) | DRG 683 ==
LOC: ER 11:07 → ERHOLD 15:48 → 2ND 17:06 → OBSVTOIN 05-21 20:40
PROVIDERS: ADMIT Internal Medicine; ATTEND Hospitalist
DX: N17.9 Acute kidney failure, unspecified (principal); A09 Infectious gastroenteritis and colitis, unspecified; E87.1 Hypo-osmolality and hyponatremia; A05.9 Bacterial foodborne intoxication, unspecified; E86.0 Dehydration; E78.5 Hyperlipidemia, unspecified; E11.9 Type 2 diabetes mellitus without complications; E03.9 Hypothyroidism, unspecified; J44.9 Chronic obstructive pulmonary disease, unspecified; K21.9 Gastro-esophageal reflux disease without esophagitis; F17.210 Nicotine dependence, cigarettes, uncomplicated; Z79.84 Long term (current) use of oral hypoglycemic drugs; Z79.02 Long term (current) use of antithrombotics/antiplatelets; Z79.890 Hormone replacement therapy; Z79.899 Other long term (current) drug therapy
CPT/HCPCS: 36415; 74177; 80048; 80053; 82947; 83036; 83690; 83735; 84100; 85025; 85027; 94010; 94640; 94760; 96361; 96365; 96367; 96375; 99285; G0378; J0360; J0744; J1644; J1815; J2405; J3475; J7030; J7613; J7644; Q9967